=== PATIENT | female | born 1990 | race Two or more races ===

== ENCOUNTER 2018-03-27 16:11 | Emergency (ER) | payer OTHER ==
[~2018-03-27] VITALS: Ht 160 cm; Wt 49.9 kg
[~2018-03-27 16:11] MED LIST: ACIDOPHILUS1 EAC3 PO
== END 2018-03-27 20:29 | disposition home or self-care (01) ==
LOC: ER 16:11
DX: B34.9 Viral infection, unspecified (principal); F06.4 Anxiety disorder due to known physiological condition

== ENCOUNTER 2018-07-18 19:04 | Emergency (ER) | payer OTHER ==
[~2018-07-18] VITALS: Ht 160 cm; Wt 47.6 kg
[2018-07-18] MEDS ORDERED: [UNRECOGNIZED DRUG - OTHER] (19:40)
== END 2018-07-18 21:20 | disposition home or self-care (01) ==
LOC: ER 19:04
DX: B34.9 Viral infection, unspecified (principal)

== ENCOUNTER 2019-01-19 10:52 | Emergency (ER) | payer OTHER ==
[~2019-01-19] VITALS: Ht 160 cm; Wt 45.4 kg
[~2019-01-19 10:52] MED LIST changes: +[UNRECOGNIZED DRUG - OTHER]
== END 2019-01-19 16:08 | disposition home or self-care (01) ==
LOC: ER 10:52
DX: N83.292 Other ovarian cyst, left side (principal); N83.291 Other ovarian cyst, right side

== ENCOUNTER 2019-02-10 14:49 | Emergency (ER) | payer OTHER ==
[~2019-02-10] VITALS: Ht 160 cm; Wt 51.3 kg
[2019-02-10] MEDS ORDERED: ATIVAN0.5 M1 (15:07)
[2019-02-10] MEDS ORDERED: PERCOCET 10-321 EACH (15:07)
[2019-02-10] MEDS ORDERED: SEROPHENE50 MG (15:07)
== END 2019-02-10 19:17 | disposition home or self-care (01) ==
LOC: ER 14:49
DX: K29.70 Gastritis, unspecified, without bleeding (principal)

== ENCOUNTER → 2019-09-17 | Emergency (ER) | payer OTHER ==
[~2019-09-17] VITALS: Ht 160 cm; Wt 45.4 kg
[~2019-09-17] MED LIST changes: +ATIVAN0.5 M1; +PERCOCET 10-321 EACH; +SEROPHENE50 MG
== END | disposition left against medical advice (07) ==
LOC: ER 20:21
DX: Z53.20 Procedure and treatment not carried out because of patient's decision for unspecified reasons (principal)

== ENCOUNTER 2019-10-05 15:39 | Emergency (ER) | payer OTHER ==
[~2019-10-05] VITALS: Ht 160 cm; Wt 45.4 kg
== END 2019-10-05 18:53 | disposition home or self-care (01) ==
LOC: ER 15:39
DX: S70.01XA Contusion of right hip, initial encounter (principal); S13.8XXA Sprain of joints and ligaments of other parts of neck, initial encounter; R51 Headache; W18.09XA Striking against other object with subsequent fall, initial encounter; Y93.89 Activity, other specified; Y92.018 Other place in single-family (private) house as the place of occurrence of the external cause; Y99.8 Other external cause status

== ENCOUNTER 2020-01-05 23:03 | Emergency (ER) | payer OTHER ==
[~2020-01-05] VITALS: Ht 160 cm; Wt 44.5 kg
[~2020-01-05 23:03] MED LIST changes: +SEROQUEL50 MG PO
[2020-01-06] MEDS ORDERED: VISTARIL25 MG PO (02:24)
== END 2020-01-06 02:38 | disposition home or self-care (01) ==
LOC: ER 23:03
DX: F06.4 Anxiety disorder due to known physiological condition (principal)